=== PATIENT | female | born 1950 | race Caucasian/White ===

== ENCOUNTER → 2020-08-28 | Outpatient (CLI) | payer MEDICARE, SELFPAY ==
[~2020-08-28] MED LIST: CELEXA20 MG PO; ECOTRIN81 MG PO; EFFEXOR XR75 MG PO; LISINOPRIL-HCT1 EAC2 PO; NORCO 10-325 T1 EACH PO; SEROQUEL300 MG PO; ZANAFLEX4 MG PO
== END ==
LOC: HEART 5 08:15 → NM 08:27 → EDSTATUS 08:30
DX: I20.8 Other forms of angina pectoris (principal); R07.9 Chest pain, unspecified; R06.02 Shortness of breath; R93.1 Abnormal findings on diagnostic imaging of heart and coronary circulation; I08.1 Rheumatic disorders of both mitral and tricuspid valves
CPT/HCPCS: 78452; 93306; A9502; J2785